=== PATIENT | female | born 1990 | race Caucasian/White ===

== ENCOUNTER 2021-02-22 12:06 | Emergency (ER) | payer SELFPAY ==
[~2021-02-22] VITALS: Ht 172.7 cm; Wt 59.0 kg
[2021-02-22 12:25] VITALS: BP 135/71
== END 2021-02-22 13:45 | disposition home or self-care (01) ==
LOC: ER 12:10
DX: Z00.8 Encounter for other general examination (principal); H57.89 Other specified disorders of eye and adnexa; Z60.2 Problems related to living alone